=== PATIENT | male | born 1965 | race Caucasian/White ===

== ENCOUNTER → 2016-11-18 | Outpatient (CLI) | payer OTHER | LOC: CAT 10:22 → ICU 12:54 → CAT 14:53 | DX: I72.3 Aneurysm of iliac artery (principal); I71.02 Dissection of abdominal aorta; N40.0 Benign prostatic hyperplasia without lower urinary tract symptoms ==

== ENCOUNTER → 2018-08-16 | Outpatient (CLI) | payer BC, OTHER | LOC: ULTRA 09:15 | DX: M79.89 Other specified soft tissue disorders (principal); M79.604 Pain in right leg ==